=== PATIENT | female | born 1995 | race Two or more races ===

== ENCOUNTER 2017-09-21 10:10 | Emergency (ER) | payer MEDICAID ==
[~2017-09-21] VITALS: Ht 162.6 cm; Wt 81.6 kg
[~2017-09-21 10:10] MED LIST: AZITHROMYCIN250 MG ORAL; DIPHENHYDRAMINE25 M1 ORAL; NEXAFED30 MG ORAL; NKM
[2017-09-21] MEDS ORDERED: PSEUDOEPHEDRINE30 MG PO (11:10)
[2017-09-21] MEDS ORDERED: FLONASE ALLERG9.9 ML NS (11:10)
[2017-09-21 11:18] VITALS: BP 120/82
--- NOTE | 2017-09-21 11:28 | Emergency Room Report ---
History of Present Illness General Chief Complaint: Flu Like Symptoms Source: Patient Present Illness HPI 22-year-old female with 2-3 days of sinus pressure, congestion and sore throat. Has been using [id number] medications including Vicks vapor rub without improvement Denies any fever chills or body aches no sick contacts No history of recurrent sinusitis Allergies: Coded Allergies: No Known Allergies (Unverified , 09/30/12) Patient History Past Medical History: none Past Surgical History: none Pertinent Family History: none Social History: Denies: smoking, alcohol use, drug use Now: No Immunizations: UTD Reviewed Nursing Documentation: PMH: Agreed, PSxH: Agreed Nursing Documentation-PMH Past Medical History: No Stated History Review of Systems All Other Systems: negative except mentioned in HPI Physical Exam Vital Signs Date Time Temp Pulse Resp B/P (MAP) Pulse Ox O2 Delivery O2 Flow Rate FiO2 09/21/17 10:12 98.8 112 20 125/80 99 Room Air Sp02 EP Interpretation: reviewed, normal General Appearance: normal inspection, well appearing, no apparent distress, alert, GCS 15, non-toxic Head: normocephalic, atraumatic Eyes: bilateral eye PERRL, bilateral eye EOMI ENT: normal ENT inspection, hearing grossly normal, normal pharynx, no angioedema, normal voice, TMs + canals normal, uvula midline, moist mucus membranes Neck: normal inspection, full range of motion, supple, thyroid normal, no meningismus, no bony tend Respiratory: normal inspection, lungs clear, normal breath sounds, no rhonchi, no respiratory distress, no retraction, no accessory muscle use, no wheezing, speaking full sentences Cardiovascular #1: regular rate, rhythm, no edema, no JVD, normal capillary refill Gastrointestinal: normal inspection, normal bowel sounds, non tender, soft, no mass, no peritonitis, non-distended, no guarding, no hernia, no pulsatile mass Genitourinary: no CVA tenderness Musculoskeletal: normal inspection, back normal, normal range of motion, no calf tenderness, pelvis stable, Ky's Sign negative Neurologic: normal inspection, alert, oriented x3, responsive, fixture fabricator repairer III-XII nml as tested, motor strength/tone normal, cerebellar normal, normal gait, speech normal Psychiatric: normal inspection, judgement/insight normal, mood/affect normal, no suicidal/homicidal ideation, no delusions Skin: normal inspection, normal color, no rash Lymphatic: normal inspection, no adenopathy Medical Decision Making Diagnostic Impression: Primary Impression: Sinus congestion ER Course 22-year-old female with symptoms of sinusitis Signs stable, afebrile No history of recurrent sinusitis 2 more antibiotics at this time we will treat symptomatically no signs of flulike illness or bacterial infection in oropharynx yo M F with DDX: Plan: Obtain labs, ua, ucx, ucg, CXR, EKG ER course: Patient has remained stable during ED stay. Disposition: Patient is to be discharged to home. Prescriptions given are Flonase, sudafed Patient is instructed to follow up with their primary care doctor within 5 days. Strict return precautions discussed with patient such as fever, chills, worsening/severe pain, nausea, vomiting, which may indicate severe illness. Patient verbalizes understanding and agrees with plan. Please note that this Emergency Department Report was dictated using [employer] management analyst technology software, occasionally this can lead to erroneous entry secondary to interpretation by the dictation equipment Last Vital Signs Date Time Temp Pulse Resp B/P (MAP) Pulse Ox O2 Delivery O2 Flow Rate FiO2 09/21/17 11:18 98.8 75 20 120/82 98 Room Air Status: improved Disposition: HOME, SELF-CARE Condition: Improved Scripts Pseudoephedrine Hcl* (SUDAFED*) 30 Mg Tablet 30 MG PO Q6H for congestion for 3 Days, #15 TAB Prov: BRAIN CONCEPCION M.D. 09/21/17 Fluticasone Propionate (Flonase Allergy Relief) 9.9 Ml [place].susp 9.9 ML NS BID for 7 Days, #1 UNIT Prov: BRAIN CONCEPCION M.D. 09/21/17 Referrals: NON PHYSICIAN (PCP) Patient Instructions: Sinusitis, Adult, [id number] BRAIN CONCEPCION M.D. Sep 21, 2017 11:28
== END 2017-09-21 11:18 | disposition home or self-care (01) ==
LOC: EMR 11:00
DX: J34.89 Other specified disorders of nose and nasal sinuses (principal); R09.81 Nasal congestion
CPT/HCPCS: 99284

== ENCOUNTER 2018-03-27 18:53 | Emergency (ER) | payer MEDICAID ==
[~2018-03-27] VITALS: Ht 162.6 cm; Wt 74.8 kg
[~2018-03-27 18:53] MED LIST changes: +FLONASE ALLERG9.9 ML NS; +PSEUDOEPHEDRINE30 MG PO
--- NOTE | 2018-03-27 19:26 | Emergency Room Report ---
History of Present Illness General Chief Complaint: General Complaint Source: Patient Present Illness HPI 22-year-old female presents to the emergency department complaining of near syncopal episode while at work approximately one hour ago. Patient reports nausea she denies vomiting, constipation, abdominal pain, fevers, chills. Patient states that she believes she has been staying pretty hydrated. Patient denies being outside in the hot temperature she states her work has air conditioning. Patient states that she had a single episode of dizziness after standing up. Patient sat down and her symptoms resolved after about 1 minute. Patient denies chest pain, palpitations, headache, or history of anxiety reports nausea x 3 weeks, denies abdominal pain or tenderness. Patient denies significant past medical history. She states that her last menstrual period was in January and she denies dysuria, hematuria, urinary frequency or urgency. Allergies: Coded Allergies: No Known Allergies (Unverified , 09/30/12) Patient History Past Medical History: see triage record Past Surgical History: none Last Menstrual Period: january 2018 : 0 Para: 0 Reviewed Nursing Documentation: PMH: Agreed; PSxH: Agreed Nursing Documentation-PMH Past Medical History: No Stated History Review of Systems All Other Systems: negative except mentioned in HPI Physical Exam Vital Signs Date Time Temp Pulse Resp B/P (MAP) Pulse Ox O2 Delivery O2 Flow Rate FiO2 03/27/18 19:01 98.0 87 18 123/76 98 Room Air 98.1 Sp02 EP Interpretation: reviewed, normal General Appearance: no apparent distress, alert, GCS 15, non-toxic Head: normocephalic, atraumatic Eyes: bilateral eye normal inspection, bilateral eye PERRL ENT: hearing grossly normal, normal voice Neck: full range of motion Respiratory: chest non-tender, lungs clear, normal breath sounds, speaking full sentences Cardiovascular #1: regular rate, rhythm, no edema Gastrointestinal: non tender, soft Genitourinary: normal inspection, no CVA tenderness Musculoskeletal: back normal, gait/station normal, normal range of motion, non- tender Neurologic: alert, oriented x3, responsive, motor strength/tone normal, sensory intact, normal gait, speech normal, grossly normal Psychiatric: judgement/insight normal Skin: normal color, no rash, warm/dry, well hydrated Medical Decision Making PA Attestation Dr. crocker is my supervising Physician whom patient management has been discussed with. Diagnostic Impression: Primary Impression: Episode of dizziness Additional Impression: Positive test ER Course 22-year-old female presents to the emergency department complaining of near syncopal episode while at work approximately one hour ago. Patient reports nausea she denies vomiting, constipation, abdominal pain, fevers, chills. Patient states that she believes she has been staying pretty hydrated. Patient denies being outside in the hot temperature she states her work has air conditioning. Patient states that she had a single episode of dizziness after standing up. Patient sat down and her symptoms resolved after about 1 minute. Patient denies chest pain, palpitations, headache, or history of anxiety reports nausea x 3 weeks, denies abdominal pain or tenderness. Patient denies significant past medical history. She states that her last menstrual period was in January and she denies dysuria, hematuria, urinary frequency or urgency. Ddx considered but are not limited to dysrhythmia, methamphetamine, hypoglycemia , hypovolemia, , intracranial process, vasovagal. Vital signs: are WNL, pt. is afebrile H&PE are most consistent with syncopal episode ORDERS: -Accu Check -12-lead EKG: unremarkable -UA: WNL -Urine hCG: Positive ED INTERVENTIONS: none required at this time DISCHARGE: At this time pt. is stable for d/c to home. Will provide printed patient care instructions, and any necessary prescriptions. Care plan and follow up instructions have been discussed with the patient prior to discharge. Labs Test 03/27/18 19:15 Urine Color Yellow Urine Appearance Clear Urine pH 6 (4.5-8.0) Urine Specific [place] 1.015 (1.005-1.035) Urine Protein Negative (NEGATIVE) Urine Glucose (UA) Negative (NEGATIVE) Urine Ketones 3+ (NEGATIVE) Urine Occult Blood Negative (NEGATIVE) Urine Nitrite Negative (NEGATIVE) Urine Bilirubin Negative (NEGATIVE) Urine Urobilinogen 1 MG/DL (0.0-1.0) Urine Leukocyte Esterase 1+ (NEGATIVE) Urine RBC 0-2 /HPF (0 - 2) Urine WBC 2-4 /HPF (0 - 2) Urine Squamous Epithelial Cells Few /LPF (NONE/OCC) Urine Bacteria Few /HPF (NONE) Urine HCG, Qualitative Positive (NEGATIVE) EKG Diagnostic Results EP Interpretation: Dr. De Rate: normal - 74 bpm Rhythm: NSR ST Segments: no acute changes ASA given to the pt in ED: No PA Scribe Text This Interpretation was scribed by HALIMA Gracia. Last Vital Signs Date Time Temp Pulse Resp B/P (MAP) Pulse Ox O2 Delivery O2 Flow Rate FiO2 03/27/18 19:01 98.0 87 18 123/76 98 Room Air 98.1 Disposition: HOME, SELF-CARE Condition: Stable Scripts Metoclopramide Hcl* (REGLAN*) 5 Mg Tablet 5 MG ORAL EVERY 6 HOURS, #15 TAB Prov: Sabra Gracia 03/27/18 Cmb#95/Iron/Fa/Dha ( + DHA COMBO PACK) 1 Each Combo..pkg 1 EACH PO DAILY for 30 Days, #1 PACK 4 Refills Prov: Sabra Gracia 03/27/18 Patient Instructions: First Trimester of , Folic Acid in , How a Baby Grows During Additional Instructions: Take medications as directed. Follow up with a OBGYN within 3 days, even if your symptoms have resolved. Return sooner to ED if new symptoms occur, or current symptoms become worse. - Please note that this Emergency Department Report was dictated using [employer] solution architect technology software, occasionally this can lead to erroneous entry secondary to interpretation by the dictation equipment. Sabra Gracia Mar 27, 2018 19:26
[2018-03-27 19:30] VITALS: BP 111/76
[2018-03-27 19:42] LABS: APPEARANCE,URINE CLEAR; BILIRUBIN, URINE NEGATIVE (NEGATIVE); GLUCOSE, URINE (UA) NEGATIVE (NEGATIVE); KETONES,URINE 3+ (NEGATIVE); LEUKOCYTE ESTERASE ,URINE 1+ (NEGATIVE); NITRITE,URINE NEGATIVE (NEGATIVE); PH,URINE 6 (4.5-8.0); PROTEIN,URINE NEGATIVE (NEGATIVE); UROBILINOGEN,URINE 1 MG/DL (0.0-1.0)
[2018-03-27 19:44] LABS: COLOR,URINE YELLOW
[2018-03-27] MEDS ORDERED: PRENATAL + DHA1 EAC2 PO (20:00)
[2018-03-27] MEDS ORDERED: REGLAN5 MG ORAL (20:00)
[2018-03-27 20:20] VITALS: BP 111/76
== END 2018-03-27 20:20 | disposition home or self-care (01) ==
LOC: EMR 19:30
DX: R42 Dizziness and giddiness (principal); R55 Syncope and collapse; Z32.01 Encounter for pregnancy test, result positive; R11.0 Nausea
CPT/HCPCS: 81003; 81025; 82962; 93005; 99284